=== PATIENT | female | born 1965 | race Caucasian/White ===

== ENCOUNTER 2023-02-06 15:21 | Outpatient (CLI) | payer BC | END 2023-02-06 15:22 | disposition home or self-care (01) | LOC: CSHMAMMO 15:21 | PROVIDERS: ATTEND Family Medicine | DX: Z12.31 Encounter for screening mammogram for malignant neoplasm of breast (principal); Z80.3 Family history of malignant neoplasm of breast | CPT/HCPCS: 77063; 77067 ==

== ENCOUNTER 2023-03-15 14:45 | Observation (INO) | payer BC ==
[2023-03-15] MEDS ORDERED: Ondansetron PF 4 MG/2 ML Vial ONE (15:38)
[2023-03-15] MEDS ORDERED: Nitroglycerin 2% Ointment 1 INCH/1 GM Packet ONE (15:39)
[2023-03-15] MEDS ORDERED: Aspirin Chewable 81 MG TAB ONE (15:39)
[2023-03-15 15:43] LABS: #Basophils 0.1 10x3/uL (0.0-0.2); #Eosinphils 0.5 10x3/uL (0.0-0.5); #Neutrophils 5.7 10x3/uL (1.5-8.4); %Basophils 1.2 % (0.0-2.0); %Eosinophils 4.6 % (0.0-6.0); %Lymphocytes 29.3 % (18.0-47.0); %Monocytes 9.3 % (0.0-10.0); %Neutrophils 55.4 % (40.0-75.0); Hematocrit 43.1 % (34.9-44.5); Hemoglobin 14.5 g/dL (12.0-15.5); Mean Corpuscular HGB CONC 33.6 g/dL (32.0-36.0); Mean Corpuscular Hemoglobin 30.9 pg (27.0-33.0); Mean Corpuscular Volume 91.9 fl (81.6-98.3); Mean Platelet Volume 10.6 fl (7.4-10.4); Platelet Count 266 10x3/uL (150-450); RBC Distribution Width 14.3 % (11.5-14.5); Red Blood Cell (RBC) Count 4.69 10x6/uL (3.90-5.03); White Blood Cell (WBC) Count 10.2 10x3/uL (3.5-10.5)
[2023-03-15 16:16] LABS: ALT (SGPT) 26 U/L (8-55); AST (SGOT) 20 U/L (5-34); Albumin 4.3 g/dL (3.5-5.0); Alkaline Phosphatase 61 U/L (40-110); Anion Gap 13 mmol/L (10-20); BUN (Urea Nitrogen) 10 mg/dL (9.8-20.1); Bilirubin, Total 0.3 mg/dL (0.2-1.2); Calc. Creatinine Clearance 0 mL/min (70-130); Calcium 9.6 mg/dL (7.8-10.44); Carbon Dioxide 26 mmol/L (22-29); Chloride 105 mmol/L (98-107); Estimated GFR 84; Globulin 2.5 g/dL (2.4-3.5); Glucose 90 mg/dL (70-105); Lipase 14 U/L (8-78); Potassium 4.3 mmol/L (3.5-5.1); Protein, Total 6.8 g/dL (6.0-8.3); Sodium 140 mmol/L (136-145)
[2023-03-15 16:23] LABS: Troponin I Less than 0.010 ng/mL (< 0.028)
[2023-03-15] MEDS ORDERED: Ondansetron PF 4 MG/2 ML Vial IVP PRN (17:11)
[2023-03-15] MEDS ORDERED: Calcium Carbonate 500 MG ChewTAB PO PRN (17:11)
[2023-03-15] MEDS ORDERED: Acetaminophen 325 MG TAB PO PRN (17:11)
[2023-03-15] MEDS ORDERED: Guaifenesin DM 100-10/5 ML UDCUP PO PRN (17:11)
[2023-03-15] MEDS ORDERED: ALPRAZolam 0.25 MG TAB PO PRN (17:13)
[2023-03-15 18:22] LABS: Bilirubin Neg (Negative); Blood, Urine Negative (Negative); Clarity Clear (Clear); Glucose, Urine (Dipstick) Normal (Negative); Ketone, Urine Negative (Negative); Leukocyte Negative (Negative); Nitrite Negative (Negative); Protein, Urine (Dipstick) Negative (Neg-Trace); Specific Gravity, Urine 1.015 (1.005-1.030); Urobilinogen Normal mg/dL (Less than 2)
[2023-03-15 18:32] LABS: Bacteria/HPF Rare-Few HPF (None Seen); CAUTI Indications for Culture Dysuria,urgency,freq; Mucous/LPF Rare LPF (<2+); RBC/HPF None Seen HPF (0-3); Squamous Epithelial 0-3 HPF (0-3); WBC/HPF 0-3 HPF (0-3)
[2023-03-15 18:33] LABS: Urine Culture Reflex No No
[2023-03-15] MEDS ORDERED: Albuterol 2.5 MG (3 mL) NEB NEB PRN (19:03)
[2023-03-15 20:26] LABS: Troponin I 0.014 ng/mL (< 0.028)
[2023-03-15 21:18] VITALS: BP 109/53; TEMP 98.6; BMI 32.8
[2023-03-16] MEDS ORDERED: Ezetimibe 10 MG TAB PO SCH (09:00)
[2023-03-16] MEDS ORDERED: Enoxaparin 40 MG (0.4 mL) SYRINGE SC SCH (09:00)
[2023-03-16] MEDS ORDERED: Fluticasone Propionate Nasal Spray 16 gm Bottle NASAL SCH (09:00)
[2023-03-16] MEDS ORDERED: Loratadine 10 MG TAB PO SCH (09:00)
[2023-03-16] MEDS ORDERED: Aspirin Chewable 81 MG TAB PO SCH (09:00)
== END 2023-03-15 22:00 | disposition left against medical advice (07) ==
LOC: CSHERS 14:45 → CSHERHOLD 17:07
PROVIDERS: ADMIT Internal Medicine; ATTEND Internal Medicine
DX: R07.9 Chest pain, unspecified (principal); E78.5 Hyperlipidemia, unspecified; F41.9 Anxiety disorder, unspecified; F17.210 Nicotine dependence, cigarettes, uncomplicated; Z88.8 Allergy status to other drugs, medicaments and biological substances; Z79.899 Other long term (current) drug therapy; Z90.89 Acquired absence of other organs; Z98.890 Other specified postprocedural states
CPT/HCPCS: 71045; 80053; 81001; 83690; 83880; 84484; 85025; 85379; 93005; 96374; G0378; J2405